=== PATIENT | female | born 1995 | race Caucasian/White ===

== ENCOUNTER → 2017-04-05 | Outpatient (CLI) | payer MEDICAID ==
[2017-04-05 17:22] LABS: EOS # 0.1 (0.04-0.40); EOS % 0.9 % (1.0-5.0); HEMATOCRIT 44.1 % (37.0-47.0); HEMOGLOBIN 14.9 g/dL (12.5-16.0); LYMPH# 2.6 (1.50-4.00); MEAN CELL VOLUME 87 fl (78-100); MEAN CORPUSCULAR HEMOGLOBIN 30 pg (27-31); MEAN CORPUSCULAR HGB CONC 34 g/dL (33-37); MEAN PLATELET VOLUME 10.5 fl (7.4-10.4); MONO # 0.3 (0.20-0.80); PLATELET COUNT 284 K/mm3 (130-400); RED BLOOD COUNT 5.05 M/mm3 (4.10-5.30); RED CELL DISTRIBUTION WIDTH 12.7 % (11.5-14.5)
[2017-04-05 17:25] LABS: ALBUMIN 4.8 g/dL (3.5-5.0); BUN/CREATININE RATIO 13.3 (6.0-26.0); CALCIUM 9.3 mg/dL (8.4-10.2); POTASSIUM 4.1 mmol/L (3.6-5.0); TOTAL BILIRUBIN 0.4 mg/dL (0.2-1.3); TOTAL PROTEIN 8.7 g/dL (6.3-8.2)
== END ==
LOC: LAB 16:38
PROVIDERS: Family Medicine
DX: Z00.00 Encounter for general adult medical examination without abnormal findings (principal)

== ENCOUNTER → 2017-06-27 | Outpatient (CLI) | payer MEDICAID ==
[~2017-06-27] VITALS: Ht 165.1 cm; Wt 68.2 kg
[2017-06-27 09:01] VITALS: BP 124/82
== END ==
LOC: AMSURD 08:44
DX: R00.2 Palpitations (principal)

== ENCOUNTER → 2017-11-23 | Outpatient (CLI) | payer BC ==
[2017-06-27 09:01] VITALS: BP 124/82
== END ==
LOC: LAB 16:52
DX: N76.0 Acute vaginitis (principal)

== ENCOUNTER → 2020-05-22 | Outpatient (CLI) | payer OTHER ==
[2017-06-27 09:01] VITALS: BP 124/82
[2020-05-22 12:38] LABS: EOS # 0.1 (0.04-0.40); EOS % 0.9 % (1.0-5.0); HEMATOCRIT 41.7 % (37.0-47.0); HEMOGLOBIN 13.9 g/dL (12.5-16.0); LYMPH# 1.9 (1.50-4.00); MEAN CELL VOLUME 91 fl (78-100); MEAN CORPUSCULAR HEMOGLOBIN 30 pg (27-31); MEAN CORPUSCULAR HGB CONC 33 g/dL (33-37); MEAN PLATELET VOLUME 10.3 fl (7.4-10.4); MONO # 0.3 (0.20-0.80); NEU # 4.1 (1.40-6.50); PLATELET COUNT 193 K/mm3 (130-400); RED BLOOD COUNT 4.58 M/mm3 (4.10-5.30); RED CELL DISTRIBUTION WIDTH 12.5 % (11.5-14.5); WHITE BLOOD COUNT 6.4 K/mm3 (4.8-10.8)
[2020-05-22 12:46] LABS: ALBUMIN 4.5 g/dL (3.5-5.0); POTASSIUM 3.8 mmol/L (3.5-5.1)
[2020-05-22 12:47] LABS: CALCIUM 8.7 mg/dL (8.3-10.5)
[2020-05-22 12:48] LABS: TOTAL PROTEIN 7.5 g/dL (6.4-8.3)
[2020-05-22 12:50] LABS: TOTAL BILIRUBIN 0.5 mg/dL (0.2-1.2)
== END ==
LOC: LAB 12:23
PROVIDERS: Family Medicine
DX: Z00.00 Encounter for general adult medical examination without abnormal findings (principal); E78.5 Hyperlipidemia, unspecified